=== PATIENT | female | born 2000 | race Caucasian/White ===

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

== ENCOUNTER 2018-05-13 18:34 | Emergency (ER) | payer OTHER, SELFPAY ==
[2018-05-13] MEDS: NS 1,000 ML IV ×2 (20:55)
[2018-05-13] MEDS: ONDANSETRON 4MG/2ML VIAL (J2405) IV ×2 (20:55)
[2018-05-13] MEDS: KETOROLAC 30 MG/ML VIAL (J1885) IV ×2 (20:56)
[2018-05-13] MEDS: GI COCKTAIL 50ML BTL(HYOSCYAMINE/MAALOX/LIDOCAINE VISCOUS)(1:3:1) PO ×2 (20:58)
[2018-05-13 21:01] LABS: BASO % 0.3 % (0.0-1.0); HEMATOCRIT 45.7 % (36.0-47.0); HEMOGLOBIN 16.1 g/dl (12.0-15.5); IMMATURE GRANULOCYTE % 0.3 % (0-3.0); LYMPH % 21.3 % (24.0-44.0); MEAN CORPUSCULAR HEMOGLOBIN 31.1 pg (27.0-33.0); MEAN CORPUSCULAR HGB CONC 35.2 g/dl (32.0-36.5); MEAN CORPUSCULAR VOLUME 88.4 fl (80.0-96.0); MONO # 0.7 10^3/uL (0.0-0.8); MONO % 7.8 % (0.0-5.0); NEUTROPHILS # 6.4 10^3/uL (1.8-7.7); NEUTROPHILS % 70.3 % (36.0-66.0); PLATELET COUNT, AUTOMATED 302 10^3/uL (150-450); RED BLOOD COUNT 5.17 10^6/uL (4.00-5.40); RED CELL DISTRIBUTION WIDTH 11.2 % (11.5-14.5); WHITE BLOOD COUNT 9.2 10^3/uL (4.0-10.0)
[2018-05-13 21:46] LABS: ALBUMIN 4.2 GM/DL (3.2-5.2); ALBUMIN/GLOBULIN RATIO 1.14 (1.00-1.93); ALKALINE PHOSPHATASE 113 U/L (45-117); ALT/SGPT 66 U/L (12-78); AMYLASE 30 U/L (25-115); ANION GAP 11 MEQ/L (8-16); AST/SGOT 26 U/L (7-37); BILIRUBIN,DIRECT 0.1 MG/DL (0.0-0.2); BILIRUBIN,TOTAL 0.4 MG/DL (0.2-1.0); BLOOD UREA NITROGEN 10 MG/DL (7-18); CALCIUM LEVEL 9.3 MG/DL (8.5-10.1); CARBON DIOXIDE LEVEL 26 MEQ/L (21-32); CHLORIDE LEVEL 103 MEQ/L (98-107); CREATININE FOR GFR 0.88 MG/DL (0.55-1.30); GLUCOSE, FASTING 93 MG/DL (70-100); LIPASE 60 U/L (73-393); SODIUM LEVEL 140 MEQ/L (136-145); TOTAL PROTEIN 7.9 GM/DL (6.4-8.2)
[2018-05-13 21:59] LABS: CONTROL LINE HCG INT CTR LINE PRESENT; HCG, SERUM QUALITATIVE NEGATIVE (NEGATIVE)
[2018-05-13] MEDS ORDERED: ISOVUE-370 76% 100ML VIAL (Q9967) As Ordered ×2 (22:11)
[2018-05-13 23:12] LABS: KETONE, URINE AUTO RFX 2+ mg/dL (NEGATIVE); LEUKOCYTE ESTERASE UR AUTO RFX NEGATIVE (NEGATIVE); MUCUS, URINE RFX SMALL (NEGATIVE); NITRITE, URINE AUTO RFX NEGATIVE (NEGATIVE); RBC, URINE AUTO RFX 2 /HPF (0-3); SQUAM EPITHELIAL CELL UR AURFX 2 /HPF (0-6); WBC, URINE AUTO RFX 0 /HPF (0-3)
[2018-05-13 23:16] LABS: SPECIFIC GRAVITY UR AUTO RFX >1.060 (1.002-1.035)
[2018-05-13] MEDS: ONDANSETRON 4 MG ORAL DISINTEGRATING TAB (Q0162 PER 1MG) PO ×2 (23:30)
== END 2018-05-13 23:37 | disposition home or self-care (01) ==
LOC: M ED 18:34
DX: R10.84 Generalized abdominal pain (principal); R11.2 Nausea with vomiting, unspecified; R19.7 Diarrhea, unspecified; K13.79 Other lesions of oral mucosa; F17.210 Nicotine dependence, cigarettes, uncomplicated; Z82.49 Family history of ischemic heart disease and other diseases of the circulatory system; Z88.1 Allergy status to other antibiotic agents; Z88.8 Allergy status to other drugs, medicaments and biological substances; Z91.048 Other nonmedicinal substance allergy status
CPT/HCPCS: J2405

== ENCOUNTER 2020-10-27 12:33 | Emergency (ER) | payer OTHER, SELFPAY ==
[~2020-10-27] VITALS: Ht 144.8 cm; Wt 77.7 kg
[2020-10-27 12:33] VITALS: BP 157/88
[~2020-10-27 12:33] MED LIST: FLUO1TAB3 PO; PRED20TA PO; TRAZ-252 PO; ZOFR4TAB14 PO; ZYRT10CA PO
[2020-10-27] MEDS ORDERED: CLOT1CRE56 TOP (13:35)
== END 2020-10-27 13:43 | disposition home or self-care (01) ==
LOC: M ED 12:33
DX: B35.4 Tinea corporis (principal); F32.9 Major depressive disorder, single episode, unspecified; F41.9 Anxiety disorder, unspecified; F90.9 Attention-deficit hyperactivity disorder, unspecified type; F17.200 Nicotine dependence, unspecified, uncomplicated; F12.10 Cannabis abuse, uncomplicated; Z88.1 Allergy status to other antibiotic agents; Z91.048 Other nonmedicinal substance allergy status

== ENCOUNTER → 2022-03-12 | Outpatient (CLI) | payer OTHER ==
[~2022-03-12] MED LIST changes: +CLOT1CRE56 TOP
== END ==
LOC: M WHC 10:35
PROVIDERS: ATTEND Advanced Practice Midwife
DX: O99.332 Smoking (tobacco) complicating pregnancy, second trimester (principal); Z36.2 Encounter for other antenatal screening follow-up; Z3A.25 25 weeks gestation of pregnancy

== ENCOUNTER → 2022-03-26 | Outpatient (CLI) | payer OTHER ==
[2022-03-26 17:41] LABS: MEAN CORPUSCULAR HEMOGLOBIN 33.4 pg (27.0-33.0); MEAN CORPUSCULAR HGB CONC 35.1 g/dl (32.0-36.5); MEAN CORPUSCULAR VOLUME 95.1 fl (80.0-96.0); PLATELET COUNT, AUTOMATED 283 10^3/uL (150-450); RED BLOOD COUNT 3.89 10^6/uL (4.00-5.40); WHITE BLOOD COUNT 15.2 10^3/uL (4.0-10.0)
[2022-03-26 18:26] LABS: GC DNA AMPLIFICATION NEGATIVE (NEGATIVE)
== END ==
LOC: M PLALAB 14:19
PROVIDERS: ATTEND Advanced Practice Midwife
DX: Z36.89 Encounter for other specified antenatal screening (principal); O99.332 Smoking (tobacco) complicating pregnancy, second trimester; Z3A.00 Weeks of gestation of pregnancy not specified; F17.200 Nicotine dependence, unspecified, uncomplicated

== ENCOUNTER → 2022-04-02 | Outpatient (CLI) | payer OTHER | LOC: M LAB 07:49 | PROVIDERS: ATTEND Advanced Practice Midwife | DX: O99.810 Abnormal glucose complicating pregnancy (principal) ==

== ENCOUNTER → 2022-04-14 | Outpatient (CLI) | payer OTHER | LOC: M WHC 12:43 | PROVIDERS: ATTEND Advanced Practice Midwife | DX: O99.332 Smoking (tobacco) complicating pregnancy, second trimester (principal) ==

== ENCOUNTER 2022-04-27 22:22 | Outpatient (CLI) | payer OTHER ==
[~2022-04-27] VITALS: Ht 144.8 cm; Wt 97.7 kg
[2022-04-27 22:55] VITALS: BP 141/72
== END 2022-04-27 23:50 | disposition home or self-care (01) ==
LOC: M LDO 22:22
PROVIDERS: ATTEND Obstetrics & Gynecology
DX: O26.893 Other specified pregnancy related conditions, third trimester (principal); O99.213 Obesity complicating pregnancy, third trimester; E66.9 Obesity, unspecified; O99.333 Smoking (tobacco) complicating pregnancy, third trimester; F17.210 Nicotine dependence, cigarettes, uncomplicated; Y92.9 Unspecified place or not applicable; Y93.9 Activity, unspecified; Y99.9 Unspecified external cause status; Z3A.31 31 weeks gestation of pregnancy

== ENCOUNTER → 2022-04-28 | Outpatient (CLI) | payer OTHER | LOC: M WHC 10:07 | PROVIDERS: ATTEND Advanced Practice Midwife | DX: O99.333 Smoking (tobacco) complicating pregnancy, third trimester (principal) ==

== ENCOUNTER → 2022-05-22 | Outpatient (CLI) | payer OTHER | LOC: M WHC 10:06 | PROVIDERS: ATTEND Advanced Practice Midwife | DX: O99.333 Smoking (tobacco) complicating pregnancy, third trimester (principal) ==

== ENCOUNTER → 2022-05-28 | Outpatient (REF) | payer OTHER | LOC: M PLALAB 12:35 | PROVIDERS: ATTEND Advanced Practice Midwife | DX: O99.333 Smoking (tobacco) complicating pregnancy, third trimester (principal) ==

== ENCOUNTER 2022-06-25 11:37 | Inpatient (IN) | payer OTHER ==
[2022-06-25] VITALS (9 sets, daily range): BP systolic 116–142; BP diastolic 64–78
[~2022-06-25] VITALS: Ht 144.8 cm; Wt 113.9 kg
[~2022-06-25 11:37] MED LIST changes: +**PENDING PCN ENTRY XX SCH
[2022-06-25] MEDS ORDERED: PENICILLIN G POTASSIUM 5 MU IV 5 MU in D5W MINI-BAG PLUS 100 ML IV STA (12:22)
[2022-06-25] MEDS ORDERED: LACTATED RINGER'S 1000 ML IV STA (12:22)
[2022-06-25] MEDS ORDERED: CARBOPROST TROMETHAMINE 250 MCG/ML AMP IM PRN (12:25)
[2022-06-25] MEDS ORDERED: OXYTOCIN DRIP 30 UNITS in IV 1 EA IV PRN ×4 (12:25)
[2022-06-25] MEDS ORDERED: OXYTOCIN INJ 10 UNITS/ML VIAL (J2590) IM PRN (12:25)
[2022-06-25] MEDS ORDERED: METHYLERGONOVINE MALEATE 0.2 MG/ML VIAL (J2210) IM PRN (12:25)
[2022-06-25] MEDS ORDERED: TRANEXAMIC ACID INJection 1,000 MG in NS 100 ML IV PRN (12:25)
[2022-06-25] MEDS ORDERED: LIDOCAINE 1% MDV 20ML VIAL INFIL PRN (12:25)
[2022-06-25] MEDS ORDERED: PRENTAB9 PO (12:57)
[2022-06-25 13:38] LABS: HEMATOCRIT 37.3 % (36.0-47.0); HEMOGLOBIN 12.6 g/dl (12.0-15.5); MEAN CORPUSCULAR HEMOGLOBIN 31.6 pg (27.0-33.0); MEAN CORPUSCULAR HGB CONC 33.8 g/dl (32.0-36.5); MEAN CORPUSCULAR VOLUME 93.5 fl (80.0-96.0); PLATELET COUNT, AUTOMATED 222 10^3/uL (150-450); RED BLOOD COUNT 3.99 10^6/uL (4.00-5.40); WHITE BLOOD COUNT 12.9 10^3/uL (4.0-10.0)
[2022-06-25] MEDS: miSOPROStol 50MCG 1/2 TABLET PO SCH ×2 (14:58→19:54)
[2022-06-25] MEDS: LR 1,000 ML IV SCH ×2 (16:04→22:42)
[2022-06-25] MEDS ORDERED: PEN G POT 3,000,000 UNIT/50 ML 3,000,000 UNIT in IV 1 EA IV SCH (16:25)
[2022-06-25] MEDS: PEN G POT 3,000,000 UNIT/50 ML 3,000,000 UNIT in IV 1 EA IV SCH ×2 (18:02→21:59)
[2022-06-26] VITALS (28 sets, daily range): BP systolic 100–155; BP diastolic 54–87
[2022-06-26] MEDS: PEN G POT 3,000,000 UNIT/50 ML 3,000,000 UNIT in IV 1 EA IV SCH ×3 (02:12→10:12)
[2022-06-26] MEDS: miSOPROStol 50MCG 1/2 TABLET PO SCH (04:57)
[2022-06-26] MEDS: PRENATAL VITAMINS CHEWABLE TABLET PO SCH (09:00)
[2022-06-26] MEDS ORDERED: OXYTOCIN DRIP 30 UNITS in IV 1 EA IV SCH ×2 (10:00→14:40)
[2022-06-26] MEDS: LR 1,000 ML IV SCH ×2 (10:11→12:50)
[2022-06-26] MEDS ORDERED: EPIDURAL/PCA KEYS XX PRN (11:45)
[2022-06-26] MEDS ORDERED: LR 500 ML IV PRN (11:45)
[2022-06-26] MEDS ORDERED: ePHEDrine SULFATE 25 MG/5 ML(5MG/ML) SYRINGE IVP PRN (11:45)
[2022-06-26] MEDS ORDERED: ONDANSETRON 4MG 2ML VIAL IV PRN ×2 (11:45→15:05)
[2022-06-26] MEDS ORDERED: FENTANYL/ROPIVACAINE/NACL BAG 100 ML EPIDURAL SCH (11:45)
[2022-06-26] MEDS ORDERED: NALOXONE INJ 0.4MG/1ML VIAL (J2310 PER 1MG) IV PRN ×3 (11:45→15:05)
[2022-06-26] MEDS ORDERED: BICITRA 30ML SOLN UDC PO ONE (13:15)
[2022-06-26] MEDS ORDERED: ceFAZolin SOD 2 GM in IV 1 EA IV ONE (13:15)
[2022-06-26] MEDS ORDERED: AZITHROMYCIN INJ 500 MG, VIAL MATE ADAPTER 1 EACH in NS 250 ML IV ONE (13:15)
[2022-06-26] MEDS ORDERED: BICITRA 30ML SOLN UDC As Ordered ONE (13:25)
[2022-06-26] MEDS ORDERED: ceFAZolin 2 GM/D5W 50 ML IV BAG (J0690 PER 500MG) As Ordered ONE (13:25)
[2022-06-26] MEDS ORDERED: AZITHROMYCIN INJ 500MG VIAL As Ordered ONE (13:25)
[2022-06-26] MEDS ORDERED: PHENYLephrine 500MCG 5ML (100MCG/ML) SYRINGE As Ordered ONE (14:19)
[2022-06-26] MEDS ORDERED: METOCLOPRAMIDE INJ 10MG/2ML VIAL (J2765 PER 1) As Ordered ONE (14:19)
[2022-06-26] MEDS ORDERED: KETOROLAC 60MG 2ML VIAL As Ordered ONE (14:19)
[2022-06-26] MEDS ORDERED: SODIUM BICARBONATE 8.4% INJ 50MEQ 50 ML VIAL As Ordered ONE (14:19)
[2022-06-26] MEDS ORDERED: ONDANSETRON 4MG 2ML VIAL As Ordered ONE (14:19)
[2022-06-26] MEDS ORDERED: MORPHINE PRES-FREE INJ 10 MG/10 ML VIAL As Ordered ONE (14:19)
[2022-06-26] MEDS ORDERED: ACETAMINOPHEN 1000MG 100ML IV BAG As Ordered ONE (14:19)
[2022-06-26] MEDS ORDERED: LIDOCAINE 2% W/EPINEPHRINE 20ML VIAL **PRES FREE As Ordered ONE (14:19)
[2022-06-26] MEDS ORDERED: dexameTHASONE 4 MG/ML 1ML VIAL (J1100 PER 1MG) As Ordered ONE (14:19)
[2022-06-26] MEDS ORDERED: OXYTOCIN 30 UNITS IN 0.9% NaCl 500ML IV BAG (J2590) As Ordered ONE ×2 (14:19→15:08)
[2022-06-26] MEDS ORDERED: fentaNYL 100 MCG/2 ML INJECTION As Ordered ONE (14:19)
[2022-06-26] MEDS ORDERED: MIDAZOLAM INJ 2MG/2ML VIAL (J2250 PER 1MG) As Ordered ONE (14:19)
[2022-06-26 14:37] LABS: CORD GAS HCO3 A 23.4 MEQ/L; CORD GAS PCO2 A 72.6 mmHg; CORD GAS PH A 7.127 UNITS; CORD GAS PO2 A 11.9 mmHg; CORD GAS TCO2 A 25.7 MEQ/L
[2022-06-26 14:38] LABS: CORD GAS ABE V -8.4; CORD GAS HCO3 V 22.1 MEQ/L; CORD GAS O2 SAT V 36.5 %; CORD GAS PCO2 V 64.2 mmHg; CORD GAS PH V 7.154 UNITS; CORD GAS PO2 V 20.7 mmHg; CORD GAS SBC V 16.3 MEQ/L
[2022-06-26 14:40] LABS: CORD GAS O2 SAT A < 15.0 %
[2022-06-26] MEDS ORDERED: METOCLOPRAMIDE INJ 10MG/2ML VIAL (J2765 PER 1) IV PRN ×2 (14:40→15:05)
[2022-06-26] MEDS ORDERED: SIMETHICONE 80MG CHEW TAB PO PRN (14:40)
[2022-06-26] MEDS ORDERED: RHOGAM 300 MCG (1500 IU) INJ (J2790) IM SCH (14:40)
[2022-06-26] MEDS ORDERED: HYDROMORPHONE HCL 0.5 MG/ 0.5 ML SYRINGE (J1170 PER 1) IV PRN (15:05)
[2022-06-26] MEDS ORDERED: MEPERIDINE INJ 25 MG/ML VIAL (J2175) IV PRN (15:05)
[2022-06-26] MEDS ORDERED: fentaNYL 100 MCG/2 ML INJECTION IV PRN (15:05)
[2022-06-26] MEDS ORDERED: oxyCODONE 5MG TAB PO PRN (15:05)
[2022-06-26] MEDS ORDERED: **NOTE PATIENT COMMENT** MISC XX SCH (15:05)
[2022-06-26] MEDS ORDERED: LACTATED RINGER'S 1000 ML IV ONE (18:50)
[2022-06-26] MEDS: SLF 3 ML SYR IV SCH ×2 (19:00→23:05)
[2022-06-26] MEDS: DOCUSATE SODIUM 100MG CAPSULE PO SCH (21:06)
[2022-06-26] MEDS: KETOROLAC 30 MG/ML 1ML VIAL IV SCH (21:06)
[2022-06-26] MEDS: ENOXAPARIN 30MG/0.3ML SYRINGE (J1650 PER 10MG) SC SCH (22:28)
[2022-06-26] MEDS ORDERED: LR 1,000 ML IV ONE (22:45)
[2022-06-27] MEDS ORDERED: LR 1,000 ML IV ONE
[2022-06-27 02:15] VITALS: BP 114/66
[2022-06-27] MEDS: KETOROLAC 30 MG/ML 1ML VIAL IV SCH ×2 (02:59→10:12)
[2022-06-27 05:45] VITALS: BP 126/73
[2022-06-27] MEDS ORDERED: LR 500 ML IV ONE (06:30)
[2022-06-27] MEDS: SLF 3 ML SYR IV SCH (06:44)
[2022-06-27 07:45] LABS: HEMATOCRIT 28.7 % (36.0-47.0); MEAN CORPUSCULAR HEMOGLOBIN 31.9 pg (27.0-33.0); MEAN CORPUSCULAR HGB CONC 33.4 g/dl (32.0-36.5); MEAN CORPUSCULAR VOLUME 95.3 fl (80.0-96.0); PLATELET COUNT, AUTOMATED 189 10^3/uL (150-450); RED BLOOD COUNT 3.01 10^6/uL (4.00-5.40); WHITE BLOOD COUNT 15.8 10^3/uL (4.0-10.0)
[2022-06-27 07:51] LABS: HEMOGLOBIN 9.6 g/dl (12.0-15.5)
[2022-06-27 10:00] VITALS: BP 105/60
[2022-06-27] MEDS: ENOXAPARIN 30MG/0.3ML SYRINGE (J1650 PER 10MG) SC SCH ×2 (10:15→20:11)
[2022-06-27] MEDS: DOCUSATE SODIUM 100MG CAPSULE PO SCH ×2 (12:22→20:07)
[2022-06-27] MEDS: PRENATAL VITAMINS CHEWABLE TABLET PO SCH (12:22)
[2022-06-27 14:00] VITALS: BP 144/77
[2022-06-27] MEDS: IBUPROFEN 800 MG TAB PO SCH (17:48)
[2022-06-27 17:59] VITALS: BP 133/68
[2022-06-27] MEDS ORDERED: ACETAMINOPHEN 500 MG TAB PO PRN (19:40)
[2022-06-27 22:00] VITALS: BP 125/69
[2022-06-28] MEDS: IBUPROFEN 800 MG TAB PO SCH ×3 (00:43→17:53)
[2022-06-28 02:00] VITALS: BP 134/64
[2022-06-28] MEDS: PERCOCET 5MG/325MG TAB PO PRN ×3 (05:59→22:20)
[2022-06-28 06:00] VITALS: BP 123/65
[2022-06-28] MEDS ORDERED: MEASLES,MUMPS,RUBELLA VACCINE INJ (MMR-II) (90707) SC.IMMUN ONE (09:00)
[2022-06-28] MEDS: DOCUSATE SODIUM 100MG CAPSULE PO SCH ×2 (09:49→22:19)
[2022-06-28] MEDS: PRENATAL VITAMINS CHEWABLE TABLET PO SCH (09:49)
[2022-06-28] MEDS: ENOXAPARIN 30MG/0.3ML SYRINGE (J1650 PER 10MG) SC SCH ×2 (09:50→22:19)
[2022-06-28 10:00] VITALS: BP 141/86
[2022-06-28 18:00] VITALS: BP 130/77
[2022-06-29] MEDS: IBUPROFEN 800 MG TAB PO SCH ×2 (01:00→08:05)
[2022-06-29 06:00] VITALS: BP 125/60
[2022-06-29] MEDS: PERCOCET 5MG/325MG TAB PO PRN ×2 (06:26→14:51)
[2022-06-29] MEDS: DOCUSATE SODIUM 100MG CAPSULE PO SCH (08:04)
[2022-06-29] MEDS: PRENATAL VITAMINS CHEWABLE TABLET PO SCH (08:05)
[2022-06-29] MEDS: ENOXAPARIN 30MG/0.3ML SYRINGE (J1650 PER 10MG) SC SCH (08:05)
[2022-06-29 11:38] LABS: HEMATOCRIT 26.8 % (36.0-47.0); HEMOGLOBIN 8.9 g/dl (12.0-15.5); MEAN CORPUSCULAR HGB CONC 33.2 g/dl (32.0-36.5); MEAN CORPUSCULAR VOLUME 96.4 fl (80.0-96.0); PLATELET COUNT, AUTOMATED 222 10^3/uL (150-450); RED BLOOD COUNT 2.78 10^6/uL (4.00-5.40)
[2022-06-29] MEDS ORDERED: PERCOCET PO (12:11)
[2022-06-29] MEDS ORDERED: IBUP80TA PO (12:11)
[2022-06-29] MEDS ORDERED: COLA100C5 PO (12:11)
== END 2022-06-29 15:15 | disposition home or self-care (01) | DRG 540 ==
LOC: M LDI 11:37 → M OBS 06-26 16:38
PROVIDERS: ADMIT Advanced Practice Midwife; ATTEND Obstetrics & Gynecology
PROC: 3E0P7GC Introduction of Other Therapeutic Substance into Female Reproductive, Via Natural or Artificial Opening (ICD-10-PCS; 2022-06-25)
PROC: 10D00Z1 Extraction of Products of Conception, Low, Open Approach (ICD-10-PCS; principal; 2022-06-26 13:26)
DX: O42.12 Full-term premature rupture of membranes, onset of labor more than 24 hours following rupture (principal); F17.210 Nicotine dependence, cigarettes, uncomplicated; Z3A.40 40 weeks gestation of pregnancy; O99.334 Smoking (tobacco) complicating childbirth; Z88.1 Allergy status to other antibiotic agents; Z88.8 Allergy status to other drugs, medicaments and biological substances; Z91.048 Other nonmedicinal substance allergy status; O61.0 Failed medical induction of labor; Z37.0 Single live birth; O99.824 Streptococcus B carrier state complicating childbirth; O99.324 Drug use complicating childbirth; F12.90 Cannabis use, unspecified, uncomplicated

== ENCOUNTER 2022-06-30 22:55 | Emergency (ER) | payer OTHER ==
[~2022-06-30] VITALS: Ht 144.8 cm; Wt 90.9 kg
[~2022-06-30 22:55] MED LIST changes: -**PENDING PCN ENTRY XX SCH; +COLA100C5 PO; +IBUP80TA PO; +PERCOCET PO; +PRENTAB9 PO
[2022-07-01] VITALS: BP 152/92
[2022-07-01] MEDS ORDERED: KETOROLAC 30 MG/ML 1ML VIAL IV ONE (01:00)
== END 2022-07-01 03:19 | disposition left against medical advice (07) ==
LOC: M ED 22:55
DX: Z53.21 Procedure and treatment not carried out due to patient leaving prior to being seen by health care provider (principal)

== ENCOUNTER → 2022-11-28 | Outpatient (REF) | payer OTHER | LOC: M SFHCWAGY 17:13 | PROVIDERS: ATTEND Obstetrics & Gynecology | DX: Z12.4 Encounter for screening for malignant neoplasm of cervix (principal); Z01.419 Encounter for gynecological examination (general) (routine) without abnormal findings; Z77.9 Other contact with and (suspected) exposures hazardous to health ==

== ENCOUNTER → 2023-09-30 | Outpatient (CLI) | payer OTHER | LOC: M WHC 10:48 | PROVIDERS: ATTEND Advanced Practice Midwife | DX: Z34.82 Encounter for supervision of other normal pregnancy, second trimester (principal) ==

== ENCOUNTER 2023-10-25 10:57 | Outpatient (CLI) | payer OTHER ==
[~2023-10-25] VITALS: Ht 144.8 cm; Wt 90.9 kg
[2023-10-25 11:25] VITALS: BP 105/56
[2023-10-25] MEDS ORDERED: HOME MED LIST COMPLETE! XX SCH (11:25)
[2023-10-25] MEDS: ONDANSETRON 4MG 2ML VIAL IV ONE (12:06)
[2023-10-25] MEDS: LR 1,000 ML IV ONE (12:06)
[2023-10-25 12:12] LABS: HEMATOCRIT 38.8 % (36.0-47.0); HEMOGLOBIN 13.7 g/dl (12.0-15.5); MEAN CORPUSCULAR HEMOGLOBIN 33.3 pg (27.0-33.0); MEAN CORPUSCULAR HGB CONC 35.3 g/dl (32.0-36.5); MEAN CORPUSCULAR VOLUME 94.4 fl (80.0-96.0); PLATELET COUNT, AUTOMATED 260 10^3/uL (150-450); RED BLOOD COUNT 4.11 10^6/uL (4.00-5.40); WHITE BLOOD COUNT 17.7 10^3/uL (4.0-10.0)
[2023-10-25 12:46] LABS: ALBUMIN 2.9 G/DL (3.2-5.2); ALKALINE PHOSPHATASE 86 U/L (46-116); ALT/SGPT 18 U/L (7.0-40); AST/SGOT 17 U/L (<34); BILIRUBIN,TOTAL 0.4 MG/DL (0.3-1.2); BLOOD UREA NITROGEN 12 MG/DL (9-23); CALCIUM LEVEL 8.2 MG/DL (8.5-10.1); CARBON DIOXIDE LEVEL 22 MMOL/L (20-31); CHLORIDE LEVEL 105 MMOL/L (98-107); CREATININE FOR GFR 0.44 MG/DL (0.55-1.30); GLOMERULAR FILTRATION RATE > 60.0 (>60); GLUCOSE, FASTING 88 MG/DL (60-100); POTASSIUM SERUM 4.2 MMOL/L (3.5-5.1); SODIUM LEVEL 135 MMOL/L (136-145)
[2023-10-25 15:56] VITALS: BP 121/60
[2023-10-25 16:46] LABS: AMPHETAMINES URINE REFLEX NEGATIVE (NEGATIVE); BARBITURATES URINE REFLEX NEGATIVE (NEGATIVE); BENZODIAZEPINES URINE REFLEX NEGATIVE (NEGATIVE); COCAINE METABOLITE URINE REFLE NEGATIVE (NEGATIVE); METHADONE URINE REFLEX NEGATIVE (NEGATIVE); OPIATES URINE REFLEX NEGATIVE (NEGATIVE); PHENCYCLIDINE URINE REFLEX NEGATIVE (NEGATIVE)
[2023-10-25 17:15] LABS: CANNABINOIDS URINE REFLEX PENDING CONFIRMATION (NEGATIVE)
== END 2023-10-25 15:50 | disposition home or self-care (01) ==
LOC: M LDO 10:57
PROVIDERS: ATTEND Obstetrics & Gynecology
DX: O99.612 Diseases of the digestive system complicating pregnancy, second trimester (principal); K52.9 Noninfective gastroenteritis and colitis, unspecified; Z3A.27 27 weeks gestation of pregnancy
CPT/HCPCS: 59025; 80053; 80307; 81001; 85027; 87486; 87581; 87633; 87798; 96374; G0463; G0480; J2405

== ENCOUNTER 2023-10-30 18:37 | Outpatient (CLI) | payer OTHER ==
[~2023-10-30] VITALS: Ht 144.8 cm; Wt 90.9 kg
[2023-10-30] MEDS ORDERED: ACET-897 PO (18:59)
[2023-10-30] MEDS ORDERED: HOME MED LIST COMPLETE! XX SCH (19:00)
== END 2023-10-30 20:00 | disposition home or self-care (01) ==
LOC: M LDO 18:37
PROVIDERS: ATTEND Advanced Practice Midwife
DX: O26.892 Other specified pregnancy related conditions, second trimester (principal); O34.219 Maternal care for unspecified type scar from previous cesarean delivery; O99.332 Smoking (tobacco) complicating pregnancy, second trimester; N89.8 Other specified noninflammatory disorders of vagina; R10.84 Generalized abdominal pain; F17.210 Nicotine dependence, cigarettes, uncomplicated; Z3A.27 27 weeks gestation of pregnancy
CPT/HCPCS: 59025; 81001; G0463

== ENCOUNTER → 2023-11-13 | Outpatient (CLI) | payer OTHER ==
[~2023-11-13] MED LIST changes: +ACET-897 PO
[2023-11-13 15:39] LABS: HEMATOCRIT 37.2 % (36.0-47.0); HEMOGLOBIN 12.6 g/dl (12.0-15.5); MEAN CORPUSCULAR HEMOGLOBIN 32.7 pg (27.0-33.0); MEAN CORPUSCULAR HGB CONC 33.9 g/dl (32.0-36.5); MEAN CORPUSCULAR VOLUME 96.6 fl (80.0-96.0); PLATELET COUNT, AUTOMATED 298 10^3/uL (150-450); RED BLOOD COUNT 3.85 10^6/uL (4.00-5.40); WHITE BLOOD COUNT 15.9 10^3/uL (4.0-10.0)
== END ==
LOC: M PLALAB 13:26
PROVIDERS: ATTEND Obstetrics & Gynecology
DX: Z34.82 Encounter for supervision of other normal pregnancy, second trimester (principal)

== ENCOUNTER → 2023-11-13 | Outpatient (CLI) | payer OTHER ==
[2023-11-13 15:39] LABS: HEMATOCRIT 36.7 % (36.0-47.0); HEMOGLOBIN 12.6 g/dl (12.0-15.5); MEAN CORPUSCULAR HEMOGLOBIN 33.4 pg (27.0-33.0); MEAN CORPUSCULAR HGB CONC 34.3 g/dl (32.0-36.5); MEAN CORPUSCULAR VOLUME 97.3 fl (80.0-96.0); PLATELET COUNT, AUTOMATED 314 10^3/uL (150-450); RED BLOOD COUNT 3.77 10^6/uL (4.00-5.40); WHITE BLOOD COUNT 16.2 10^3/uL (4.0-10.0)
[2023-11-13 16:46] LABS: HIV 1&2 SCREEN NEGATIVE (NEGATIVE)
[2023-11-13 16:54] LABS: HEPATITIS C VIRUS ABY INDEX < 0.02 INDEX (<0.8)
== END ==
LOC: M PLALAB 13:24
PROVIDERS: ATTEND Advanced Practice Midwife
DX: Z34.82 Encounter for supervision of other normal pregnancy, second trimester (principal)

== ENCOUNTER → 2023-11-27 | Outpatient (CLI) | payer OTHER | LOC: M LAB 08:24 | PROVIDERS: ATTEND Obstetrics & Gynecology | DX: R73.02 Impaired glucose tolerance (oral) (principal) ==

== ENCOUNTER → 2023-12-15 | Outpatient (CLI) | payer OTHER | LOC: M RAD 12:58 | PROVIDERS: ATTEND Obstetrics & Gynecology | DX: Z34.92 Encounter for supervision of normal pregnancy, unspecified, second trimester (principal) ==

== ENCOUNTER 2024-01-01 16:51 | Inpatient (IN) | payer OTHER ==
[~2024-01-01] VITALS: Ht 144.8 cm; Wt 96.6 kg
[2024-01-01] MEDS ORDERED: HOME MED LIST COMPLETE! XX SCH (17:50)
[2024-01-01 19:31] LABS: HEMATOCRIT 34.2 % (36.0-47.0); HEMOGLOBIN 12.1 g/dl (12.0-15.5); MEAN CORPUSCULAR HEMOGLOBIN 32.9 pg (27.0-33.0); MEAN CORPUSCULAR HGB CONC 35.4 g/dl (32.0-36.5); MEAN CORPUSCULAR VOLUME 92.9 fl (80.0-96.0); PLATELET COUNT, AUTOMATED 238 10^3/uL (150-450); RED BLOOD COUNT 3.68 10^6/uL (4.00-5.40); WHITE BLOOD COUNT 15.2 10^3/uL (4.0-10.0)
[2024-01-01] MEDS ORDERED: METHYLERGONOVINE MALEATE 0.2MG/ML 1ML VIAL IM PRN (19:40)
[2024-01-01] MEDS ORDERED: TRANEXAMIC ACID INJection 1,000 MG in NS 100 ML IV PRN (19:40)
[2024-01-01] MEDS ORDERED: CARBOPROST TROMETHAMINE 250 MCG/ML AMP IM PRN (19:40)
[2024-01-01] MEDS: LR 1,000 ML IV SCH (20:06)
[2024-01-01] MEDS: ceFAZolin SOD 2 GM in IV 1 EA IV ONE (20:06)
[2024-01-01] MEDS: LACTATED RINGER'S 1000 ML IV STA (20:06)
[2024-01-01] MEDS: AZITHROMYCIN INJ 500 MG, VIAL MATE ADAPTER 1 EACH in NS 250 ML IV ONE (20:18)
[2024-01-01] MEDS: BICITRA 30ML SOLN UDC PO ONE (20:18)
[2024-01-01 20:36] LABS: HEPATITIS C VIRUS ABY INDEX 0.02 INDEX (<0.8)
[2024-01-01] MEDS ORDERED: ONDANSETRON 4MG 2ML VIAL As Ordered ONE (20:57)
[2024-01-01] MEDS: DOCUSATE SODIUM 100MG CAPSULE PO SCH (21:00)
[2024-01-01] MEDS ORDERED: OXYTOCIN 30UNITS IN 0.9% NaCl 500ML IV BAG As Ordered ONE (21:01)
[2024-01-01] MEDS ORDERED: MIDAZOLAM INJ 2MG/2ML VIAL As Ordered ONE (21:09)
[2024-01-01 21:21] LABS: CORD GAS HCO3 V 23.7 MMOL/L; CORD GAS O2 SAT V 76.4 %; CORD GAS PCO2 V 39.9 mmHg; CORD GAS PH V 7.392 UNITS; CORD GAS PO2 V 31.7 mmHg; CORD GAS SBC V 23.1 MMOL/L; CORD GAS TCO2 V 24.9 MMOL/L
[2024-01-01 21:22] LABS: CORD GAS ABE A -3.2; CORD GAS HCO3 A 22.2 MMOL/L; CORD GAS O2 SAT A 56.8 %; CORD GAS PH A 7.351 UNITS; CORD GAS PO2 A 23.5 mmHg; CORD GAS SBC A 20.8 MMOL/L; CORD GAS TCO2 A 23.4 MMOL/L
[2024-01-01] MEDS ORDERED: KETOROLAC 60MG 2ML VIAL As Ordered ONE (21:44)
[2024-01-01] MEDS ORDERED: ACETAMINOPHEN 1000MG 100ML IV BAG As Ordered ONE (21:46)
[2024-01-01] MEDS ORDERED: MORPHINE PRES-FREE INJ 10 MG/10 ML VIAL As Ordered ONE (21:48)
[2024-01-01] MEDS ORDERED: RHO(D) IMMUNE GLOBULIN/MALTOSE 500MCG(2500IU)/2.2ML VIAL (WINRHO) IM SCH (21:50)
[2024-01-01] MEDS ORDERED: SIMETHICONE 80MG CHEW TAB PO PRN (21:50)
[2024-01-01] MEDS: SLF 3 ML SYR IV SCH (22:05)
[2024-01-01] MEDS ORDERED: NALOXONE INJ 0.4MG/1ML VIAL IV PRN ×2 (22:05)
[2024-01-01] MEDS ORDERED: METOCLOPRAMIDE INJ 10MG/2ML VIAL IV PRN (22:05)
[2024-01-01] MEDS ORDERED: **NOTE PATIENT COMMENT** MISC XX SCH (22:05)
[2024-01-01] MEDS ORDERED: NALBUPHINE HCL 1MG/0.1ML (100MG/10ML) MDV IV PRN (22:05)
[2024-01-01] MEDS: OXYTOCIN DRIP 30 UNITS in IV 1 EA IV SCH (22:27)
[2024-01-01 22:50] VITALS: TEMP 97.6
[2024-01-01 23:10] VITALS: BP 115/67; O2SAT 100
[2024-01-01 23:40] VITALS: BP 120/68; O2SAT 100
[2024-01-02] VITALS (8 sets, daily range): BP systolic 101–135; BP diastolic 54–92; O2SAT 97–100
[2024-01-02] MEDS: KETOROLAC 30 MG/ML 1ML VIAL IV SCH (04:10)
[2024-01-02 06:57] LABS: HEMATOCRIT 31.4 % (36.0-47.0); HEMOGLOBIN 11.1 g/dl (12.0-15.5); MEAN CORPUSCULAR HEMOGLOBIN 33.1 pg (27.0-33.0); MEAN CORPUSCULAR HGB CONC 35.4 g/dl (32.0-36.5); MEAN CORPUSCULAR VOLUME 93.7 fl (80.0-96.0); PLATELET COUNT, AUTOMATED 207 10^3/uL (150-450); RED BLOOD COUNT 3.35 10^6/uL (4.00-5.40); WHITE BLOOD COUNT 17.7 10^3/uL (4.0-10.0)
[2024-01-02] MEDS: PRENATAL VITAMINS CHEWABLE TABLET PO SCH (08:29)
[2024-01-03] MEDS: IBUPROFEN 800 MG TAB PO SCH (00:18)
[2024-01-03 02:00] VITALS: BP 115/63; O2SAT 100
[2024-01-03] MEDS: PERCOCET 5MG/325MG TAB PO PRN (05:06)
[2024-01-03 06:00] VITALS: BP 119/71; O2SAT 97
[2024-01-03] MEDS ORDERED: PERCOCET PO (06:49)
[2024-01-03] MEDS ORDERED: MEASLES,MUMPS,RUBELLA VACCINE INJ (MMR-II) SC.IMMUN ONE (09:00)
== END 2024-01-03 07:20 | disposition home or self-care (01) | DRG 540 ==
LOC: M LDO 16:51 → M LDI 19:46 → M OBS 23:05
PROVIDERS: ADMIT Advanced Practice Midwife; ATTEND Obstetrics & Gynecology
PROC: 0UT70ZZ Resection of Bilateral Fallopian Tubes, Open Approach (ICD-10-PCS; 2024-01-01)
PROC: 10D00Z1 Extraction of Products of Conception, Low, Open Approach (ICD-10-PCS; principal; 2024-01-01 19:50)
DX: O60.14X0 Preterm labor third trimester with preterm delivery third trimester, not applicable or unspecified (principal); O77.0 Labor and delivery complicated by meconium in amniotic fluid; Z88.1 Allergy status to other antibiotic agents; Z88.8 Allergy status to other drugs, medicaments and biological substances; Z91.048 Other nonmedicinal substance allergy status; O34.211 Maternal care for low transverse scar from previous cesarean delivery; Z37.0 Single live birth; Z30.2 Encounter for sterilization; Z3A.36 36 weeks gestation of pregnancy

== ENCOUNTER → 2024-03-28 | Outpatient (CLI) | payer OTHER, MEDICAID | LOC: M SOG 07:59 | PROVIDERS: ATTEND Physician Assistant | DX: M79.645 Pain in left finger(s) (principal) ==

== ENCOUNTER → 2024-04-28 | Outpatient (CLI) | payer OTHER | LOC: M PLAIMG 14:28 | PROVIDERS: ATTEND Physician Assistant | DX: M79.645 Pain in left finger(s) (principal) ==

== ENCOUNTER 2024-07-08 06:42 | Day surgery (SDC) | payer OTHER ==
[~2024-07-08] VITALS: Ht 144.8 cm; Wt 88.0 kg
[~2024-07-08 06:42] MED LIST changes: +[UNRECOGNIZED DRUG - OTHER] PO
[2024-07-08] MEDS ORDERED: LIDOCAINE 2% 100MG/5ML SDV (FOR ANES.) As Ordered ONE (06:54)
[2024-07-08] MEDS ORDERED: ONDANSETRON 4MG 2ML VIAL As Ordered ONE (06:54)
[2024-07-08] MEDS ORDERED: propofoL 200 MG/20 ML VIAL As Ordered ONE (06:54)
[2024-07-08] MEDS ORDERED: KETOROLAC 60MG 2ML VIAL As Ordered ONE (06:54)
[2024-07-08] MEDS ORDERED: fentaNYL 100 MCG/2 ML INJECTION As Ordered ONE (06:57)
[2024-07-08] MEDS ORDERED: MIDAZOLAM INJ 2MG/2ML VIAL As Ordered ONE (06:58)
[2024-07-08] MEDS ORDERED: NS 1,000 ML IV SCH ×2 (07:30→09:35)
[2024-07-08] MEDS ORDERED: dexmedeTOMIDine (4MCG/ML)200MCG/50ML BTL (PRECEDEX) As Ordered ONE (07:51)
[2024-07-08] MEDS: ceFAZolin 2 GM/D5W 50 ML IV BAG As Ordered ONE (07:59)
[2024-07-08] MEDS ORDERED: ACETAMINOPHEN 1000MG/100ML IV BAG As Ordered ONE (08:01)
[2024-07-08] MEDS: BACITRACIN OINTMENT 30GM TUBE As Ordered ONE (08:53)
[2024-07-08] MEDS: LIDOCAINE 1% MDV 20ML VIAL As Ordered ONE (09:15)
[2024-07-08] MEDS ORDERED: PERC5TAB12 PO (09:34)
[2024-07-08] MEDS ORDERED: HYDROMORPHONE HCL 0.5 MG/ 0.5 ML SYRINGE IV PRN (09:35)
[2024-07-08] MEDS ORDERED: fentaNYL 100 MCG/2 ML INJECTION IV PRN (09:35)
[2024-07-08] MEDS ORDERED: ONDANSETRON 4MG 2ML VIAL IV PRN (09:35)
[2024-07-08] MEDS: oxyCODONE 5MG TAB PO PRN (10:37)
[2024-07-08 10:49] VITALS: BP 125/72; TEMP 97.6; O2SAT 99
== END 2024-07-08 11:29 | disposition home or self-care (01) ==
LOC: M SDC 06:42
PROVIDERS: ATTEND Orthopaedic Surgery Hand Surgery
DX: M20.022 Boutonniere deformity of left finger(s) (principal); M25.342 Other instability, left hand; F17.210 Nicotine dependence, cigarettes, uncomplicated; Z88.1 Allergy status to other antibiotic agents; Z88.8 Allergy status to other drugs, medicaments and biological substances
CPT/HCPCS: 26418; 26785; 76000; J0131; J0690; J1100; J1885; J2250; J2405; J3010

== ENCOUNTER → 2024-07-22 | Outpatient (CLI) | payer OTHER ==
[~2024-07-22] MED LIST changes: +PERC5TAB12 PO
== END ==
LOC: M SOG 14:13
PROVIDERS: ATTEND Physician Assistant
DX: S66.30 Unspecified injury of extensor muscle, fascia and tendon of other and unspecified finger at wrist and hand level (principal); Y93.9 Activity, unspecified; Y92.9 Unspecified place or not applicable

== ENCOUNTER → 2024-09-01 | Outpatient (CLI) | payer OTHER | LOC: M SOG 14:49 | PROVIDERS: ATTEND Orthopaedic Surgery Hand Surgery | DX: S66.307A Unspecified injury of extensor muscle, fascia and tendon of left little finger at wrist and hand level, initial encounter (principal); Y93.9 Activity, unspecified; Y92.9 Unspecified place or not applicable ==

== ENCOUNTER → 2024-10-06 | Outpatient (CLI) | payer OTHER | LOC: M SOG 07:58 | PROVIDERS: ATTEND Physician Assistant | DX: S66.30 Unspecified injury of extensor muscle, fascia and tendon of other and unspecified finger at wrist and hand level (principal) ==

== ENCOUNTER → 2024-11-24 | Outpatient (CLI) | payer OTHER | LOC: M SOG 07:51 | PROVIDERS: ATTEND Physician Assistant | DX: S66.30 Unspecified injury of extensor muscle, fascia and tendon of other and unspecified finger at wrist and hand level (principal) ==

== ENCOUNTER → 2025-02-10 | Outpatient (CLI) | payer OTHER ==
[~2025-02-10] MED LIST changes: +IBUP-1022 PO
== END ==
LOC: M SOG 07:32
PROVIDERS: ATTEND Physician Assistant
DX: S92.355A Nondisplaced fracture of fifth metatarsal bone, left foot, initial encounter for closed fracture (principal); W18.30XA Fall on same level, unspecified, initial encounter; Y92.009 Unspecified place in unspecified non-institutional (private) residence as the place of occurrence of the external cause

== ENCOUNTER 2025-04-04 12:35 | Emergency (ER) | payer OTHER ==
[~2025-04-04] VITALS: Ht 144.8 cm; Wt 78.9 kg
[~2025-04-04 12:35] MED LIST changes: -IBUP-1022 PO; +IBUP600T42 PO
[2025-04-04] MEDS: LIDOCAINE 1% MDV 20 ML VIAL SC ONE (14:56)
[2025-04-04 15:31] VITALS: BP 138/80; TEMP 97.3; O2SAT 100
== END 2025-04-04 15:34 | disposition home or self-care (01) ==
LOC: M ED 12:35
DX: S91.115A Laceration without foreign body of left lesser toe(s) without damage to nail, initial encounter (principal); Y92.019 Unspecified place in single-family (private) house as the place of occurrence of the external cause; Y93.9 Activity, unspecified; Y99.9 Unspecified external cause status; W20.8XXA Other cause of strike by thrown, projected or falling object, initial encounter; F41.9 Anxiety disorder, unspecified; Z88.1 Allergy status to other antibiotic agents; Z88.8 Allergy status to other drugs, medicaments and biological substances